=== PATIENT | male | born 1980 | race American Indian/Alaskan Native ===

== ENCOUNTER 2016-12-03 20:40 | Emergency (ER) | payer SELFPAY ==
[2016-12-03 20:51] VITALS: BP 131/68
[2016-12-03] MEDS ORDERED: BOOSTRIX IM ONE (21:19)
[2016-12-03] MEDS ORDERED: MORPHINE IV ONE (21:19)
[2016-12-03] MEDS ORDERED: ZOFRAN IV ONE (21:19)
[2016-12-03] MEDS ORDERED: NACL 0.9% 0 ML IR ONE (21:28)
--- NOTE | 2016-12-03 21:50 | Emergency Department Report ---
ED General Adult HPI - General Chief complaint: Wound/Laceration Stated complaint: FOOT INJURY Time Seen by Provider: 12/03/16 21:07 Source: patient Mode of arrival: Ambulatory Limitations: No Limitations - History of Present Illness Initial comments: pt is a 36 y/o aam [facility] pt endorses " I dropped trailer tongue on right great toe , presents open toe fracture pain and throbbing, pt advise unable to bear weight, pain is 8/10 sharp, pt arrived via pov and ambulated into ed without assistance, Onset/Timin -: hour(s) Location: lower extremity (right foot great toe ) Radiation: distal Severity scale (0 -10): 7 Quality: sharp Consistency: constant Improves with: none Worsens with: movement Associated Symptoms: other (tingling ) Treatments Prior to Arrival: none - Related Data Previous Rx's Medication Instructions Recorded Last Taken Type Acetaminophen/Codeine [Tylenol 1 tab PO Q6H PRN #20 tab 12/03/16 Unknown Rx /Codeine # 3 tab] Cephalexin [Keflex] 500 mg PO QID #40 capsule 12/03/16 Unknown Rx Allergies Allergy/AdvReac Type Severity Reaction Status Date / Time No Known Allergies Allergy Verified 12/03/16 20:46 ED Review of Systems ROS: Stated complaint: FOOT INJURY Other details as noted in HPI Constitutional: denies: chills, fever Eyes: denies: eye pain, eye discharge, vision change ENT: denies: ear pain, throat pain Respiratory: denies: cough, shortness of breath, wheezing Cardiovascular: denies: chest pain, palpitations Endocrine: no symptoms reported Gastrointestinal: denies: abdominal pain, nausea, diarrhea Genitourinary: denies: urgency, dysuria Musculoskeletal: myalgia, other (open puncture wound right dorsal great toe ) Skin: denies: rash, lesions Neurological: denies: headache, weakness, paresthesias Psychiatric: denies: anxiety, depression Hematological/Lymphatic: denies: easy bleeding, easy bruising ED Past Medical Hx - Past Medical History Previous Medical History?: No - Surgical History Past Surgical History?: Yes Additional Surgical History: knee - Social History Smoking Status: Never Smoker Substance Use Type: None - Medications Home Medications: Home Medications Medication Instructions Recorded Confirmed Last Taken Type Acetaminophen/Codeine [Tylenol 1 tab PO Q6H PRN #20 tab 12/03/16 Unknown Rx /Codeine # 3 tab] Cephalexin [Keflex] 500 mg PO QID #40 capsule 12/03/16 Unknown Rx ED Physical Exam - General Limitations: No Limitations General appearance: alert, in no apparent distress - Head Head exam: Present: atraumatic, normocephalic - Eye Eye exam: Present: normal appearance - ENT ENT exam: Present: mucous membranes moist - Neck Neck exam: Present: normal inspection - Respiratory Respiratory exam: Present: normal lung sounds bilaterally. Absent: respiratory distress - Cardiovascular Cardiovascular Exam: Present: regular rate, normal rhythm. Absent: systolic murmur, diastolic murmur, rubs, gallop - GI/Abdominal GI/Abdominal exam: Present: soft, normal bowel sounds - Rectal Rectal exam: Present: deferred - Extremities Exam Extremities exam: Present: full ROM, tenderness, normal capillary refill. Absent: pedal edema, joint swelling, calf tenderness - Expanded Lower Extremity Exam Right Hip exam: Present: full ROM, tenderness Upper Leg exam: Present: normal inspection, full ROM Knee exam: Present: normal inspection, full ROM Lower Leg exam: Present: normal inspection, full ROM Ankle exam: Present: normal inspection, full ROM Foot/Toe exam: Present: tenderness, swelling, deformity, erythema, puncture wound, nail avulsion. Absent: abrasion, laceration, ecchymosis, crepidus, dislocation, amputation, foreign body, calcaneal tenderness, tenderness at base of 5th metatarsal, subungual hematoma Neuro vascular tendon exam: Present: no vascular compromise, significant pain with passive ROM of distal joint (right great toe distal maranda). Absent: pulse deficit, abnormal cap refill, motor deficit, sensory deficit, tendon deficit, extremity cold to touch, pallor, abnormal 2-point discrimination, decreased fine /light touch, foot drop, peroneal nerve deficit Gait: Positive: observed and limited by pain 1 - puncture wound mild bleeding nail avulsed - Back Exam Back exam: Present: normal inspection, full ROM. Absent: tenderness, CVA tenderness (R), CVA tenderness (L), muscle spasm, paraspinal tenderness, vertebral tenderness - Neurological Exam Neurological exam: Present: alert, oriented X3, CN II-XII intact, reflexes normal - Expanded Neurological Exam Expanded Patient oriented to: Present: person, place, time Speech: Present: fluid speech Cranial nerves: EOM's Intact: Normal, Gag Reflex: Normal, Tongue Deviation: Normal, Nystagmus: Normal, Facial Sensation: Normal Cerebellar function: Finger to Nose: Normal, Heel to [place]: Normal, Romberg: Normal Upper motor neuron: Franklin Neglect: Normal, Pronator Drift: Normal, Babinski Sign : Normal, Sensory Extinction: Normal Sensory exam: Upper Extremity Light Touch: Normal, Upper Extremity Pin Prick: Normal, Upper Extremity Temperature: Normal, UE 2 Point Discrimination: Normal, Lower Extremity Light Touch: Normal, Lower Extremity Pin Prick: Normal, Lower Extremity Temperature: Normal, LE 2 Point Discrimination: Normal Motor strength exam: RUE: 5, LUE: 5, RLE: 5, LLE: 5 DTR: bicep (R): 2+, bicep (L): 2+, tricep (R): 2+, tricep (L): 2+, knee (R): 2+ , knee (L): 2+, ankle (R): 2+, ankle (L): 2+ Best Eye Response (Khloe): (4) open spontaneously Best Motor Response (Khloe): (6) obeys commands Best Verbal Response (Wann): (5) oriented Khloe Total: 15 - Psychiatric Psychiatric exam: Present: normal affect, normal mood - Skin Skin exam: Present: warm, dry, normal color, other (puncture wound as noted above ). Absent: rash ED Course Vital Signs 12/03/16 20:47 Temperature 97.8 F Pulse Rate 60 Blood Pressure 131/68 O2 Sat by Pulse 100 Oximetry ED Medical Decision Making - Medical Decision Making pt is a 36 y/o aam s/p trailer tongue versus right great toe pt advises I drop the trailer tongue on my toe , pt was wearing flip flops, pt sustained puncture wound with nail avulsion, pt advises pain and difficulty with ambulation , pain 8/10 , sharp with tingling there is no numbness no paralysis rom restricted by pain there is no nerve or muscle involvement , exam: PPEPB+2 , PRESCRIPTIONIST<3 sec , right great toe nail avulsed , wound cleaned with betadine solution place, vasaline gauzea dn betadine dressing , ingrid and coban wrap, all bleeding is controlled, xray right foot: right open non displaced great toe fracture , consulted ed attending , recommendation betadine dressing, ortho shoe , crutches , follow up with Dr. Boyd in 2 days tuesdayDec 07 for evaluation and treatment, pt given strict instructions to return to emergency if symptoms worsen pt verbalized agreement and understanding with same. pt given wound care instructions, pt demonstrate safe use of crutches, pt for dc to home via pov with at bedside both verbalized agreement and understanding with discharge plan. pt given Tdap, Azncef 2gm IM , morphine, and zofran in ED , will dc with Keflex po qid, tylenol #3, prn, pt will follow up with Dr. Boyd as directed. pt is currently a/[facility] x [facility] with [facility] Critical care attestation.: If time is entered above; I have spent that time in minutes in the direct care of this critically ill patient, excluding procedure time. ED Disposition Clinical Impression: Open nondisplaced fracture of right great toe Qualifiers: Encounter type: initial encounter Phalanx: distal Qualified Code(s): S92.424B - Nondisplaced fracture of distal phalanx of right great toe, initial encounter for open fracture Disposition: DC-01 TO HOME OR SELFCARE Is pt being admited?: No Does the pt Need Aspirin: No Condition: Good Instructions: Toe Fracture (ED) Prescriptions: Acetaminophen/Codeine [Tylenol /Codeine # 3 tab] 1 tab PO Q6H PRN #20 tab PRN Reason: Pain Cephalexin [Keflex] 500 mg PO QID #40 capsule Forms: Work/School Release Form(ED) Time of Disposition: 22:30
[2016-12-03] MEDS ORDERED: ceFAZolin 2 GM in NACL 0.9% 100 ML IV ONE (22:00)
--- NOTE | 2016-12-03 23:45 | XRay Report ---
FINAL REPORT PROCEDURE: XR FOOT 3+V RT TECHNIQUE: RIGHT foot radiographs, AP, lateral, and oblique views. CPT 72153 HISTORY: foot injury COMPARISON: No prior studies are available for comparison. FINDINGS: Fracture (s) and/or Dislocation(s): There are fractures of the 1st distal phalanx.. Alignment: Normal . Joint space(s): Normal . Soft tissues: There is soft tissue swelling of the 1st digit.. Bone mineralization: Normal . Foreign bodies: None . Calcaneal spurring: None . There are fractures of the 1st distal phalanx with soft tissue swelling. There is no joint dislocation. IMPRESSION: Normal Examination .
== END 2016-12-03 22:46 | disposition home or self-care (01) ==
LOC: ED 20:40
DX: S92.424B Nondisplaced fracture of distal phalanx of right great toe, initial encounter for open fracture (principal); W20.8XXA Other cause of strike by thrown, projected or falling object, initial encounter; Y93.9 Activity, unspecified; Y92.9 Unspecified place or not applicable; Y99.9 Unspecified external cause status
CPT/HCPCS: 73630; 90471; 90715; 96365; 96375; 99284; J0690; J2270; J2405